=== PATIENT | female | born 1975 | race Caucasian/White ===

== ENCOUNTER 2016-10-24 11:37 | Emergency (ER) | payer BC ==
[~2016-10-24] VITALS: Wt 68.0 kg
--- NOTE | 2016-10-24 11:55 | ERA ---
ER Documentation Chief Complaint Date/Time DATE: 10/24/16 TIME: 11:55 Chief Complaint Swollen tongue HPI The patient is a 41-year-old female, presenting to the ER because he feels as if her tongue/lips swollen that make her panic and dyspneic. She has similar symptoms previously, this happened right after she ate tortilla and drank coffee. She has similar symptoms about a month ago, denies syncope, near syncope, neck pain, chest pain, abdominal pain, vomiting, dysuria, diarrhea. She does not smoke or drink, has a lot of stress in her life Past medical history: Anxiety, depression, dyslipidemia, hypertension Past surgical history: None ROS All systems reviewed and are negative except as per history of present illness. Medications Home Meds Active Scripts Famotidine* (Pepcid*) 20 Mg Tablet, 20 MG PO BID for 5 Days, TAB Prov:KELL LIZARRAGA MD 10/24/16 Prednisone* (Prednisone*) 20 Mg Tab, 60 MG PO DAILY for 5 Days, TAB Prov:KELL LIZARRAGA MD 10/24/16 Diphenhydramine Hcl* (Benadryl*) 50 Mg Cap, 50 MG PO Q6H Y for ITCHING/RASH, # 30 CAP Prov:KELL LIZARRAGA MD 10/24/16 Allergies Allergies: Coded Allergies: No Known Allergy (Unverified , 05/08/14) PMhx/Soc Medical and Surgical Hx: pt denies Medical Hx, pt denies Surgical Hx History of Surgery: No Anesthesia Reaction: No Hx Neurological Disorder: No Hx Respiratory Disorders: No Hx Cardiac Disorders: No Hx Psychiatric Problems: Yes (anxiety and depression ) Hx Miscellaneous Medical Probl: No Hx Alcohol Use: No Hx Substance Use: No Hx Tobacco Use: No Smoking Status: Former smoker Physical Exam Vitals Vital Signs Date Time Temp Pulse Resp B/P Pulse Ox O2 Delivery O2 Flow Rate FiO2 10/24/16 11:39 100.2 133 18 183/104 100 Physical Exam Const: No acute distress. Very anxious Head: Atraumatic. Eyes: Normal Conjunctiva. ENT: Normal External Ears, Nose and Mouth. Tongue and lips are not edematous Neck: Full range of motion. No meningismus. Resp: Clear to auscultation bilaterally. Cardio: Regular tachycardic Abd: Soft, non distended, normal bowel sounds, non tender. Skin: No petechiae or rashes. Back: No midline or flank tenderness. Ext: No cyanosis, or edema. Neur: Awake and alert. No focal deficit Psych: Normal Mood and Affect. Results 24 hrs Current Medications Medications (Trade) Dose Ordered Sig/Liv Route PRN Reason Start Time Stop Time Status Last Admin Dose Admin Methylprednisolone Sodium Succinate (Solu-Medrol) 125 mg ONCE ONCE IV 10/24/16 12:00 10/24/16 12:01 DC 10/24/16 12:13 Diphenhydramine HCl (Benadryl) 50 mg ONCE ONCE IV 10/24/16 12:00 10/24/16 12:01 DC 10/24/16 12:14 Famotidine 20 mg 20 mg ONCE ONCE IV 10/24/16 12:00 10/24/16 12:01 DC 10/24/16 12:14 Sodium Chloride (NS) 1,000 ml @ 1,000 mls/hr Q1H ONCE IV 10/24/16 12:00 10/24/16 12:59 DC 10/24/16 12:14 Procedures/MDM MEDICAL MAKING DECISION: The patient is 41-year-old female, presenting with acute anaphylaxis. She was treated with 1 L normal saline, Benadryl 50 mg IV, Pepcid 20 mg IV, Solu-Medrol 125 mg IV with good response The differential diagnoses considered include but are not limited to acute food allergy, acute anxiety attack, acute panic attack, epiglottitis Departure Diagnosis: Primary Impression: Anaphylaxis Condition: Good Comments She was discharged with Benadryl, Pepcid, prednisone and advised to follow-up with her doctor in the morning for reevaluation, return if any concern KELL LIZARRAGA MD Oct 24, 2016 11:55
[2016-10-24] MEDS ORDERED: FAMOTIDINE 20 MG INJ IV ONE (12:00)
[2016-10-24] MEDS ORDERED: METHYLPREDNISOLONE 125 MG INJ IV ONE (12:00)
[2016-10-24] MEDS ORDERED: SOD CHLORIDE 0.9% 1,000 ML IV ONE (12:00)
[2016-10-24] MEDS ORDERED: DIPHENHYDRAMINE 50 MG INJ IV ONE (12:00)
[2016-10-24] MEDS ORDERED: BEN50 PO (13:52)
[2016-10-24] MEDS ORDERED: PRED20TA PO (13:52)
[2016-10-24] MEDS ORDERED: FAMO-18 PO (13:53)
== END 2016-10-24 14:20 | disposition home or self-care (01) ==
LOC: E/R 11:37
DX: T78.2XXA Anaphylactic shock, unspecified, initial encounter (principal); I10 Essential (primary) hypertension; R40.2142 Coma scale, eyes open, spontaneous, at arrival to emergency department; R40.2252 Coma scale, best verbal response, oriented, at arrival to emergency department; R40.2362 Coma scale, best motor response, obeys commands, at arrival to emergency department; Z87.891 Personal history of nicotine dependence
CPT/HCPCS: 96361; 96374; 96375; 99284; J1200; J2930; J7030